=== PATIENT | male | born 1935 | race Caucasian/White ===

== ENCOUNTER → 2016-09-10 | Outpatient (CLI) | payer MEDICARE, BC ==
[~2016-09-10] MED LIST: ATEN-104 PO; ATOR80TA PO; CIPR500T4 PO; DIOV160T60 PO; HYDR-3580 PO; HYDR50TA5 PO; KLOR10TA8 PO; LOTR10CA PO; MAGN500T4 PO; OMEP20TA PO
[2016-09-10 14:24] LABS: AUTOMATED NEUTROPHIL # 6.3 TH/MM3 (1.8-7.7); BASOPHIL % 0.5 % (0.0-2.0); EOSINOPHIL # 0.1 TH/MM3 (0-0.4); EOSINOPHIL % 1.1 % (0.0-4.0); HEMO FLAGS DIFF FINAL; LYMPH % 27.6 % (9.0-44.0); LYMPHOCYTE # 2.8 TH/MM3 (1.0-4.8); MEAN CELL VOLUME 92.7 FL (80.0-100.0); MEAN CORPUSCULAR HEMOGLOBIN 30.7 PG (27.0-34.0); MEAN CORPUSCULAR HGB CONC 33.1 % (32.0-36.0); MONO % 8.3 % (0.0-8.0); NEUT % 62.5 % (16.0-70.0); PLATELET COUNT 171 TH/MM3 (150-450); RED BLOOD COUNT 4.64 MIL/MM3 (4.50-5.90); RED CELL DISTRIBUTION WIDTH 13.6 % (11.6-17.2)
--- NOTE | 2016-09-11 09:18 | EKG ---
Date Performed: 09/10/2016 Time Performed: 13:43:37 PTAGE: 81 years EKG: SINUS BRADYCARDIA WITH OCCASIONAL SUPRAVENTRICULAR PREMATURE COMPLEXES BORDERLINE ECG PREVIOUS TRACING : 08/09/2013 17.32 DOCTOR: Eric Cortez Interpretating Date/Time 09/11/2016 09:17:16
== END ==
LOC: HCAV 13:27
PROVIDERS: ATTEND Ophthalmology
DX: Z01.810 Encounter for preprocedural cardiovascular examination (principal); H25.11 Age-related nuclear cataract, right eye
CPT/HCPCS: 36415; 85025; 93005

== ENCOUNTER 2017-07-19 16:04 | Emergency (ER) | payer MEDICARE, BC ==
[~2017-07-19] VITALS: Ht 172.7 cm; Wt 91.0 kg
[2017-07-19 16:13] VITALS: BP 130/62; PULSE 58; RESP 16; TEMP 98.4; O2SAT 95
[2017-07-19] MEDS ORDERED: AMLO5TAB2 PO (16:24)
[2017-07-19] MEDS ORDERED: LOSA100T PO (16:24)
[2017-07-19] MEDS ORDERED: CALC1TAB12 PO (16:24)
[2017-07-19] MEDS ORDERED: KLOR10TA PO (16:24)
[2017-07-19] MEDS ORDERED: MAG-TAB PO (16:24)
[2017-07-19] MEDS ORDERED: AMLO10TA2 PO (16:24)
[2017-07-19] MEDS ORDERED: METF500T PO (16:24)
[2017-07-19] MEDS ORDERED: HYDR50TA3 PO (16:24)
[2017-07-19] MEDS ORDERED: VITA100018 PO (16:24)
[2017-07-19] MEDS ORDERED: ATEN100T PO (16:24)
--- NOTE | 2017-07-19 16:43 | PD ---
HPI Chief Complaint: Musculoskeletal Complaint Time Seen by Provider: 16:26 Travel History International Travel<30 days: No Contact w/Intl Traveler<30days: No Traveled to known affect area: No History of Present Illness HPI 81-year-old male here for evaluation of right lower back pain and right flank pain. Patient reports having this pain for the last 2 days. Pain is constant, made worse with movement, radiates down his right leg. He reports having upper respiratory symptoms and coughing last week, afterwards he began having this pain. His upper respiratory symptoms have since resolved. No dysuria or hematuria. No history of cancer. No fevers or chills. PFSH Past Medical History Arthritis: Yes Asthma: No Autoimmune Disease: No Blood Disorders: No Anxiety: No Depression: No Heart Rhythm Problems: No Cancer: No Cardiovascular Problems: Yes High Cholesterol: Yes Chemotherapy: No Chest Pain: No Congestive Heart Failure: No COPD: No Diabetes: No Diminished Hearing: No Endocrine: No Gastrointestinal Disorders: Yes (DIVERTICULITIS) GERD: Yes Genitourinary: Yes (BPH) Hepatitis: No Hiatal Hernia: No Hypertension: Yes Immune Disorder: No Implanted Vascular Access Dvce: Yes Musculoskeletal: Yes (LOW BACK PAIN) Neurologic: No Psychiatric: No Reproductive: No Respiratory: Yes (HX NOSE BLEEDS) Immunizations Current: No Radiation Therapy: No Renal Failure: No Sleep Apnea: No Thyroid Disease: No PNEUMOCCOCAL Vaccine (Year): 2 Past Surgical History Abdominal Surgery: Yes (PARTIAL ASCENDING COLECTOMY) AICD: No Cardiac Surgery: No Eye Surgery: Yes (LEFT CATARACT EXTRACT) Joint Replacement: No Neurologic Surgery: Yes Pacemaker: No Thoracic Surgery: No Other Surgery: Yes (COLONOSCOPY) Social History Alcohol Use: No Tobacco Use: No Substance Use: No Allergies-Medications (Allergen,Severity, Reaction): Coded Allergies: chicken derived (Unverified Allergy, Severe, DIARRHEA, 07/19/17) doxazosin (Unverified Allergy, Severe, PT STATES HE FEELS FUNNY, 07/19/17) esomeprazole (Unverified Allergy, Severe, GI PROB, 07/19/17) fexofenadine (Unverified Allergy, Severe, GI UPSET, 07/19/17) rice (Unverified Allergy, Severe, DIARRHEA, 07/19/17) tamsulosin (Unverified Allergy, Severe, "DID NOT FEEL RIGHT", 07/19/17) Reported Meds & Prescriptions Reported Meds & Active Scripts Active Reported Vitamin D3 (Cholecalciferol) 1,000 Unit Tab 1,000 Units PO DAILY Mag-Delay (Magnesium Chloride) 70 Mg Magnesium Tab 64 Mg PO DAILY Calcium 500 +D (Calcium Carbonate-Cholecalciferol) 500-400 Mg-Unit Tab 1 Tab PO BID Hydrochlorothiazide 50 Mg Tab 50 Mg PO DAILY Losartan (Losartan Potassium) 100 Mg Tab 100 Mg PO DAILY Atenolol 100 Mg Tab 100 Mg PO DAILY Klor-Con 10 (Potassium Chloride) 10 Meq Tab 10 Meq PO DAILY Amlodipine (Amlodipine Besylate) 10 Mg Tab 10 Mg PO DAILY Amlodipine (Amlodipine Besylate) 5 Mg Tab 5 Mg PO DAILY Metformin (Metformin HCl) 500 Mg Tab 500 Mg PO BIDPC Review of Systems Except as stated in HPI: all other systems reviewed are Neg Physical Exam Narrative GENERAL: Well-developed, well-nourished, comfortable, no apparent distress. SKIN: Focused skin assessment warm/dry. No rash. HEAD: Atraumatic. Normocephalic. EYES: Pupils equal and round. No scleral icterus. No injection or drainage. ENT: Mucous membranes pink and moist. NECK: Trachea midline. No JVD. CARDIOVASCULAR: Regular rate and rhythm. No murmur appreciated. RESPIRATORY: No accessory muscle use. Clear to auscultation. Breath sounds equal bilaterally. GASTROINTESTINAL: Abdomen soft, non-tender, nondistended. Hepatic and splenic margins not palpable. MUSCULOSKELETAL: No obvious deformities. No clubbing. No cyanosis. No edema. No midline vertebral step-off or tenderness. Normal range of motion in all joints and extremities with normal muscle strength in all 4 extremities. Moderate tenderness at the right SI joint. No CVA tenderness bilaterally. NEUROLOGICAL: Awake and alert. No obvious cranial nerve deficits. Motor grossly within normal limits. Normal speech. PSYCHIATRIC: Appropriate mood and affect; insight and judgment normal. Data Data Last Documented VS Vital Signs Date Time Temp Pulse Resp B/P (MAP) Pulse Ox O2 Delivery O2 Flow Rate FiO2 07/19/17 16:46 96 07/19/17 16:13 98.4 58 16 130/62 (84) Orders Orders Complete Blood Count With Diff (07/19/17 16:32) Comprehensive Metabolic Panel (07/19/17 16:32) Lipase (07/19/17 16:32) Prothrombin Time / Inr (Pt) (07/19/17 16:32) Act Partial Throm Time (Ptt) (07/19/17 16:32) Urinalysis - C+S If Indicated (07/19/17 16:32) Ct Abd/Pel W/O Iv Contrast (07/19/17 16:32) Iv Access Insert/Monitor (07/19/17 16:32) Ecg Monitoring (07/19/17 16:32) Oximetry (07/19/17 16:32) Sodium Chloride 0.9% Flush (Ns Flush) (07/19/17 16:45) Morphine Inj (Morphine Inj) (07/19/17 16:45) Chest, Single Ap (07/19/17 ) Ct Lumb Spine W/O Contrast (07/19/17 ) Morphine Inj (Morphine Inj) (07/19/17 18:45) Labs Laboratory Tests Test 07/19/17 16:40 White Blood Count 14.7 TH/MM3 Red Blood Count 4.81 MIL/MM3 Hemoglobin 15.0 GM/DL Hematocrit 44.5 % Mean Corpuscular Volume 92.5 FL Mean Corpuscular Hemoglobin 31.2 PG Mean Corpuscular Hemoglobin Concent 33.7 % Red Cell Distribution Width 13.1 % Platelet Count 230 TH/MM3 Mean Platelet Volume 8.3 FL Neutrophils (%) (Auto) 72.8 % Lymphocytes (%) (Auto) 19.5 % Monocytes (%) (Auto) 6.8 % Eosinophils (%) (Auto) 0.3 % Basophils (%) (Auto) 0.6 % Neutrophils # (Auto) 10.7 TH/MM3 Lymphocytes # (Auto) 2.9 TH/MM3 Monocytes # (Auto) 1.0 TH/MM3 Eosinophils # (Auto) 0.0 TH/MM3 Basophils # (Auto) 0.1 TH/MM3 CBC Comment DIFF FINAL Differential Comment Prothrombin Time 11.0 SEC Prothromb Time International Ratio 1.1 RATIO Activated Partial Thromboplast Time 28.2 SEC Urine Collection Type CLEAN CATCH Urine Color YELLOW Urine Turbidity SL CLOUDY Urine pH 7.5 Urine Specific [place] 1.010 Urine Protein 30 mg/dL Urine Glucose (UA) NEG mg/dL Urine Ketones NEG mg/dL Urine Occult Blood TRACE Urine Nitrite NEG Urine Bilirubin NEG Urine Urobilinogen 0.2 MG/DL Urine Leukocyte Esterase NEG Urine RBC 4-9 /hpf Urine WBC 3-5 /hpf Urine Squamous Epithelial Cells 6-8 /hpf Urine Amorphous Sediment SMALL Urine Bacteria OCC /hpf Urine Hyaline Casts 15-19 /lpf Urine Mucus FEW /lpf Microscopic Urinalysis Comment CULT NOT INDICATED Blood Urea Nitrogen 16 MG/DL Creatinine 1.30 MG/DL Random Glucose 163 MG/DL Total Protein 8.0 GM/DL Albumin 3.2 GM/DL Calcium Level 9.6 MG/DL Alkaline Phosphatase 61 U/L Aspartate Amino Transf (AST/SGOT) 18 U/L Alanine Aminotransferase (ALT/SGPT) 34 U/L Total Bilirubin 1.0 MG/DL Sodium Level 133 MEQ/L Potassium Level 3.8 MEQ/L Chloride Level 97 MEQ/L Carbon Dioxide Level 26.7 MEQ/L Anion Gap 9 MEQ/L Estimat Glomerular Filtration Rate 53 ML/MIN Lipase 55 U/L MDM Medical Decision Making Medical Screen Exam Complete: Yes Emergency Medical Condition: Yes Differential Diagnosis Sciatica, arthritis, compression fracture, nephrolithiasis, ureterolithiasis, diverticulitis Narrative Course Vital signs show heart rate 60, blood pressure 130/62, pulse ox 96% on room air , oral temperature 98.4F. CBC: WBC 14.7, hemoglobin 15, hematocrit 44.5, platelets 230. CMP is remarkable for random glucose 163, otherwise unremarkable. Lipase is 55. UA: 4-9 RBCs, 6-8 epithelial cells, occasional bacteria, 15-19 casts, few mucous Chest x-ray: CONCLUSION: 1. Mild basilar airspace disease. Differential diagnosis includes atelectasis or mild pneumonia. CT abdomen and pelvis: CONCLUSION: 1. Negative for renal calculi or obstructive uropathy. Small bilateral renal cysts. 2. Numerous gallstones without biliary ductal dilatation. 3. Moderate to severe colonic diverticulosis without evidence for diverticulitis. CT lumbar spine: CONCLUSION: 1. No acute fracture or spondylolisthesis. Degenerative change as above with encroachment on the lateral recesses and neural foramina bilaterally at L5-one and L4-5. Moderate to advanced facet arthropathy in the lower lumbar spine The patient and the patient's family were made aware of all findings. He has no red flags for low back pain. His pain seems very musculoskeletal in nature. He has full range of motion in his bilateral lower extremities as well as sensation. He was given a total of 6 mg of morphine with only mild improvement in symptoms. At this point he is stable for discharge home and outpatient follow-up with his primary care physician this week. I will give him a prescription for Lortab and tizanidine and discussed each medication in detail and the cautions with taking these medications with the patient and the patient' s family. They were advised on when to return to the emergency department. They verbalized understanding and agreement with plan. Diagnosis Primary Impression: Low back pain Qualified Codes: M54.41 - Lumbago with sciatica, right side Additional Impression: Microscopic hematuria Referrals: Primary Care Physician 3 days Additional Instructions: Follow-up with your primary care physician this week. Return to the emergency department for worsening symptoms or any other concerns. Scripts Tizanidine (Tizanidine) 4 Mg Tab 4 MG PO TID for Muscle Spasm, #15 TAB 0 Refills Prov: Yandel Soto MD 07/19/17 Hydrocodone-Acetaminophen (Hydrocodone-Acetaminophen) 5-325 mg Tab 1 TAB PO Q6H Y for PAIN, #15 TAB 0 Refills Prov: Yandel Soto MD 07/19/17 Disposition: 01 DISCHARGE HOME Condition: Stable Yandel Soto MD Jul 19, 2017 16:43
[2017-07-19] MEDS ORDERED: MORPHINE SULFATE 2 MG/ML INJ IV PUSH ONE ×2 (16:45→18:45)
[2017-07-19] MEDS ORDERED: SODIUM CHLORIDE 0.9% FLUSH 10 ML FLUSH IV FLUSH PRN (16:45)
[2017-07-19 16:46] VITALS: O2SAT 96
[2017-07-19 16:51] LABS: AUTOMATED NEUTROPHIL # 10.7 TH/MM3 (1.8-7.7); BASOPHIL # 0.1 TH/MM3 (0-0.2); BASOPHIL % 0.6 % (0.0-2.0); EOSINOPHIL % 0.3 % (0.0-4.0); HEMATOCRIT 44.5 % (39.0-51.0); LYMPH % 19.5 % (9.0-44.0); LYMPHOCYTE # 2.9 TH/MM3 (1.0-4.8); MEAN CELL VOLUME 92.5 FL (80.0-100.0); MEAN CORPUSCULAR HEMOGLOBIN 31.2 PG (27.0-34.0); MEAN CORPUSCULAR HGB CONC 33.7 % (32.0-36.0); MEAN PLATELET VOLUME 8.3 FL (7.0-11.0); MONO % 6.8 % (0.0-8.0); NEUT % 72.8 % (16.0-70.0); PLATELET COUNT 230 TH/MM3 (150-450); RED BLOOD COUNT 4.81 MIL/MM3 (4.50-5.90); RED CELL DISTRIBUTION WIDTH 13.1 % (11.6-17.2); WHITE BLOOD COUNT 14.7 TH/MM3 (4.0-11.0)
[2017-07-19 17:00] LABS: CHLORIDE 97 MEQ/L (98-107); SODIUM (NA) 133 MEQ/L (136-145)
[2017-07-19 17:03] LABS: BILIRUBIN, URINE NEG (NEG); BLOOD, URINE TRACE (NEG); GLUCOSE,URINE NEG (NEG); KETONE, URINE NEG (NEG); NITRITE,URINE NEG (NEG); PH, URINE 7.5 (5.0-8.5); URINE COLOR YELLOW (YELLW/STRAW); URINE LEUKOCYTE ESTERASE NEG (NEG)
[2017-07-19 17:04] LABS: ALBUMIN 3.2 GM/DL (3.4-5.0); BICARBONATE 26.7 MEQ/L (21.0-32.0); BLOOD UREA NITROGEN 16 MG/DL (7-18); CALCIUM 9.6 MG/DL (8.5-10.1); GLUCOSE,RANDOM 163 MG/DL (74-106)
[2017-07-19 17:06] LABS: INTERNATIONAL NORMALIZED RATIO 1.1 RATIO
[2017-07-19 17:07] LABS: ALT (GPT) 34 U/L (12-78); AST (GOT) 18 U/L (15-37); GLOMERULAR FILTRATION RATE 53 ML/MIN (>89)
[2017-07-19 17:10] LABS: ALKALINE PHOSPHATASE 61 U/L (45-117)
[2017-07-19 17:41] LABS: HYALINE CAST, URINE 15-19 /lpf (RARE); MUCUS URINE FEW /lpf (OCC)
[2017-07-19 17:42] LABS: AMORPHOUS SEDIMENT, URINE SMALL; BACTERIA, URINE OCC /hpf
--- NOTE | 2017-07-19 18:12 | RADRPT ---
EXAM DATE/TIME: 07/19/2017 17:49 [facility] COMPARISON: No previous studies available for comparison. INDICATIONS : Cough MEDICAL HISTORY : None. SURGICAL HISTORY : None. ENCOUNTER: Initial ACUITY: 1 month PAIN SCORE: 0/10 LOCATION: Bilateral chest FINDINGS: Mild basilar density most characteristic of atelectasis. Mild elevation right hemidiaphragm. Cardiome joy. No significant effusion. No pneumothorax. CONCLUSION: 1. Mild basilar airspace disease. Differential diagnosis includes atelectasis or mild pneumonia. Stephon Hou MD on July 19, 2017 at 18:10 Board Certified Radiologist. This report was verified electronically.
--- NOTE | 2017-07-19 18:34 | RADRPT ---
EXAM DATE/TIME: 07/19/2017 18:11 [place] Corrected on: July 25, 2017; Added Surgical History [facility] COMPARISON: No previous studies available for comparison. INDICATIONS : Abdomen pain. ORAL CONTRAST: No oral contrast ingested. RADIATION DOSE: 22.15 CTDIvol (mGy) MEDICAL HISTORY : Hypertension. SURGICAL HISTORY : Cholecystectomy ENCOUNTER: Initial ACUITY: 1 day PAIN SCALE: 5/10 LOCATION: cranial TECHNIQUE: Volumetric scanning of the abdomen and pelvis was performed. Using automated exposure control and ad justment of the mA and/or kV according to patient size, radiation dose was kept as low as reasonably achievable to obtain optimal diagnostic quality images. DICOM format image data is available electro nically for review and comparison. FINDINGS: Parenchymal scarring at the lung bases. No acute findings in the liver, spleen, adrenals or pancreas. Numerous layering gallstones in the gal lbladder. There is no hydronephrosis. No renal calculi. Small bilateral renal cysts. No bladder calculi. There is colonic diverticulosis without evidence for diverticulitis. Previous par tial colonic resection. Small fat containing umbilical hernia. CONCLUSION: 1. Negative for renal calculi or obstructive uropathy. Small bilateral renal cysts. 2. Numerous gallstones without biliary ductal dilatation. 3. Moderate to severe colonic diverticulosis without evidence for diverticulitis. Stephon Hou MD on July 19, 2017 at 18:30 Board Certified Radiologist. This report was verified electronically.
--- NOTE | 2017-07-19 19:07 | RADRPT ---
EXAM DATE/TIME: 07/19/2017 18:11 [facility] COMPARISON: No previous studies available for comparison. INDICATIONS : Low back pain. RADIATION DOSE: CTDIvol (mGy) ; Reconstructed from previous dataset, no dose MEDICAL HISTORY : Hypertension. SURGICAL HISTORY : ENCOUNTER: Initial ACUITY: 1 day PAIN SCALE: 5/10 LOCATION: Bilateral lumbar TECHNIQUE: Volumetric scanning of the lumbar spine was performed. Multiplanar reconstructions in the sagittal, coronal and oblique axial planes were performed. Using automated exposure control and adjustment of the mA and/or kV according to patient size, radiation dose was kept as low as reasonably achievable t o obtain optimal diagnostic quality images. DICOM format image data is available electronically for review and comparison. FINDINGS: No significant abnormality at A10-N4-D0-O0. This bulge at L3-4. At L4-5 there is a partially calcified broad-based small disc protrusion and facet arthropathy with m ild stenosis of the lateral recesses and neural foramina. L5-S1 is a broad-based mild partially calcified disc protrusion with mild lateral recess encroachment and mild bilateral foraminal stenosis. CONCLUSION: 1. No acute fracture or spondylolisthesis. Degenerative change as above with encroachment on the late ral recesses and neural foramina bilaterally at L5-one and L4-5. Moderate to advanced facet arthropat hy in the lower lumbar spine. Stephon Hou MD on July 19, 2017 at 19:03 Board Certified Radiologist. This report was verified electronically.
[2017-07-19] MEDS ORDERED: TIZA4TAB PO (19:22)
[2017-07-19] MEDS ORDERED: HYDR-3516 PO (19:22)
== END 2017-07-19 19:53 | disposition home or self-care (01) ==
LOC: PHEFT 16:04
DX: M54.41 Lumbago with sciatica, right side (principal); R31.29 Other microscopic hematuria; I10 Essential (primary) hypertension; E78.00 Pure hypercholesterolemia, unspecified; K21.9 Gastro-esophageal reflux disease without esophagitis; Z87.39 Personal history of other diseases of the musculoskeletal system and connective tissue; Z87.19 Personal history of other diseases of the digestive system
CPT/HCPCS: 71045; 72131; 74176; 80053; 81001; 83690; 85025; 85610; 85730; 96374; 96376; 99284; J2270